=== PATIENT | female | born 1950 | race Caucasian/White ===

== ENCOUNTER 2016-08-25 09:49 | Day surgery (SDC) | payer OTHER ==
[~2016-08-25] VITALS: Ht 170.2 cm; Wt 49.9 kg
[~2016-08-25 09:49] MED LIST: CEFAZOLIN SOD 1 GM/ ISO 50 ML PREMIX IV ONE
[2016-08-25 10:45] VITALS: O2SAT 96
[2016-08-25] MEDS ORDERED: fentaNYL CITRATE 250 MCG/5 ML AMP IV ONE (12:24)
[2016-08-25] MEDS ORDERED: MIDAZOLAM HCL 5 MG/5 ML VIAL IVP ONE (12:24)
[2016-08-25] MEDS ORDERED: NS IRRIG SOLN 1000 ML IR ONE (12:24)
[2016-08-25] MEDS ORDERED: LR 1,000 ML IV.SOLN IV ONE (12:24)
[2016-08-25] MEDS ORDERED: KETOROLAC TROMETHAMINE 30 MG VIAL IVP ONE (12:24)
[2016-08-25] MEDS ORDERED: SEVOFLURANE 15 MIN GAS INH ONE (12:24)
[2016-08-25] MEDS ORDERED: PROPOFOL 200MG/ 20ML VIAL (DIPRIVAN) IV ONE (12:24)
[2016-08-25] MEDS ORDERED: ONDANSETRON HCL 4 MG/2 ML VIAL IVP ONE (12:24)
[2016-08-25] MEDS ORDERED: LR 1,000 ML IV SCH (13:02)
[2016-08-25] MEDS ORDERED: HYDROmorphone 2 MG/ML VIAL IVP PRN ×2 (13:15)
[2016-08-25] MEDS ORDERED: HYDROmorphone 1 MG INJ. 1 MG/ML AMPUL IVP PRN ×2 (13:15→15:15)
[2016-08-25] MEDS ORDERED: MEPERIDINE HCL/PF 25 MG/ML DISP.SYRIN IVP PRN ×2 (13:15)
[2016-08-25] MEDS ORDERED: ePHEDrine sulfate 50 MG/ML VIAL IVP PRN (13:15)
[2016-08-25] MEDS ORDERED: ONDANSETRON HCL 4 MG/2 ML VIAL IVP PRN (13:15)
[2016-08-25] MEDS ORDERED: D5/0.45 NS 1,000 ML IV SCH (15:11)
[2016-08-25] MEDS ORDERED: HYDROcodone/ACETAMIN 5-325 MG TAB (NORCO/ VICODIN) PO PRN ×2 (15:15)
[2016-08-25] MEDS ORDERED: HYDROmorphone 1 MG INJ. 1 MG/ML AMPUL ONE (15:35)
[2016-08-25 16:45] VITALS: BP 98/63; PULSE 116; RESP 17
[2016-08-25] MEDS ORDERED: EPINEPHrine 1 MG/ML AMP ONE (16:46)
== END 2016-08-25 17:55 | disposition home or self-care (01) ==
LOC: SDS 09:49 → SMU 09:50 → EDSTATUS 12:30 → SDS 17:55
PROVIDERS: ATTEND Colon & Rectal Surgery
DX: C50.912 Malignant neoplasm of unspecified site of left female breast (principal); T85.49XA Other mechanical complication of breast prosthesis and implant, initial encounter; J44.9 Chronic obstructive pulmonary disease, unspecified; L30.9 Dermatitis, unspecified; E53.8 Deficiency of other specified B group vitamins; I83.90 Asymptomatic varicose veins of unspecified lower extremity; Z98.890 Other specified postprocedural states; Z80.1 Family history of malignant neoplasm of trachea, bronchus and lung; Z80.0 Family history of malignant neoplasm of digestive organs; F17.200 Nicotine dependence, unspecified, uncomplicated; R00.0 Tachycardia, unspecified
CPT/HCPCS: 19303; 19328; 38525; 78195; 88305; 88307; 88311; 88333; 88342; A9541; J0690; J1170; J1885; J2250; J2405; J2704; J3010; J7120; J0171